=== PATIENT | female | born 1995 | race Caucasian/White ===

== ENCOUNTER 2025-06-20 13:12 | Outpatient (AMB) | payer OTHER, SELFPAY ==
--- OUTSIDE RECORDS SUMMARY | 2024-05-09 10:40 | XMS_ITS ---
Author Organization [employer] Address [address] [facility] [address] [place] [address] Care Team Providers Care Lumber Grader Name Role Phone DARNELL GIORDANO, RIAZ Primary Care Provider ALENA Jean Unavailable [phone] REASON FOR VISIT DEPO Encounters Encounter Location Date Provider Diagnosis [facility] [address] [place] [address] 05/09/2024 ALENA JEROME Plan Of Treatment Next Appt Details Provider Name:Tootie calhoun, 07/03/2025 08:10:00 AM, [address] [facility], [facility] [address], [place], [address], Progress Notes * MIAH MURPHYDOB: (30 yo F)Acc No.[id number]:05/09/2024 PROGRESS NOTES Patient: Clara MIAH GHOTRA Provider: Sarah JEROME MD :1995 A ge:29 Y S ex:Female Date:05/09/2024 Address[address] [id number] Pcp:RIAZ PATRICK MD Subjective: * Chief Complaints: * 1 . DEPO. * Medical History: Objective: * Vitals: Assessment: Plan: * Treatment: * Images: Billing Information: * Visit Code: * Procedure Codes: * Electronic signature of ALENA JEROME MD on 06/20/2025 at 05:14 PM EST Sign off status: Pending * Provider: Sarah JEROME MD Date: 1 07/09/2023 Generated for Josefina gibson/Jaquelin/Holly on: 08/21/2024 05:14 PM EST
--- OUTSIDE RECORDS SUMMARY | 2024-07-29 09:50 | XMS_ITS ---
Author Organization [facility] Address [address] [facility] [address] [place] [address] Care Team Providers Care Resident Care Aid Name Role Phone DARNELL GIORDANO, RIAZ Primary Care Provider ALENA Jean Unavailable [phone] REASON FOR VISIT DEPO Encounters Encounter Location Date Provider Diagnosis [facility] [employer] [facility] [address] [place] [address] 07/29/2024 ALENA JEROME Plan Of Treatment Next Appt Details Provider Name:Tootie calhoun, 07/03/2025 08:10:00 AM, [address] [facility], [facility] [address], [place], [address], Progress Notes * MIAH MURPHYDOB: (30 yo F)Acc No.[id number]:07/29/2024 PROGRESS NOTES Patient: Clara MIAH GHOTRA Provider: Sarah JEROME MD :1995 A ge:29 Y S ex:Female Date:07/29/2024 Address:[address] [id number] Pcp:RIAZ PATRICK MD Subjective: * Chief Complaints: * 1 . DEPO. * Medical History: Objective: * Vitals: Assessment: Plan: * Treatment: * Images: Billing Information: * Visit Code: * Procedure Codes: * Electronic signature of ALENA JEROME MD on 06/20/2025 at 05:14 PM EST Sign off status: Pending * Provider: Sarah JEROME MD Date: 0 07/29/2024 Generated for Josefina gibson/Jaquelin/Holly on: 1 08/21/2024 05:14 PM EST
--- OUTSIDE RECORDS SUMMARY | 2024-10-21 09:00 | XMS_ITS ---
Author Organization [facility] [employer] Address [address] [facility] [address] [place] [address] Care Team Providers Care Cook Specialty Name Role Phone DARNELL GIORDANO, RIAZ Primary Care Provider ALENA Jean Unavailable [phone] REASON FOR VISIT DEPO Encounters Encounter Location Date Provider Diagnosis [facility] [employer] [address] [place] [address] 10/21/2024 ALENA JEROME Plan Of Treatment Next Appt Details Provider Name:Tootie calhoun, 07/03/2025 08:10:00 AM, [address] [facility], [facility] [address], [place], [address], Progress Notes * MIAH MURPHYDOB: (30 yo F)Acc No.[id number]:10/21/2024 PROGRESS NOTES Patient: Clara MIAH GHOTRA Provider: Sarah JEROME MD :1995 A ge:29 Y S ex:Female Date:10/21/2024 Address:[address] [id number] Pcp:RIAZ PATRICK MD Subjective: * Chief Complaints: * 1 . DEPO. * Medical History: Objective: * Vitals: Assessment: Plan: * Treatment: * Images: Billing Information: * Visit Code: * Procedure Codes: * Electronic signature of ALENA JEROME MD on 06/20/2025 at 05:13 PM EST Sign off status: Pending * Provider: Sarah JEROME MD Date: 0 10/21/2024 Generated for Josefina gibson/Jaquelin/Holly on: 1 08/21/2024 05:13 PM EST
--- OUTSIDE RECORDS SUMMARY | 2024-11-24 09:30 | XMS_ITS ---
Author Organization [facility] [facility] Address [address] [facility] [address] [place] [address] Care Team Providers Care Collections Curator Name Role Phone DARNELL GIORDANO, RIAZ Primary Care Provider ALENA Jean [phone] REASON FOR VISIT Annual SAP FICO ARCHITECT Physical Encounters Encounter Location Date Provider Diagnosis [facility] [address] [place] [address] 11/24/2024 ALENA JEROME Plan Of Treatment Next Appt Details Provider Name:Tootie calhoun, 07/03/2025 08:10:00 AM, [address] [place] [address], [facility] [address], [place], [address], Progress Notes * MIAH MURPHYDOB: (30 yo F)Acc No.[id number]:11/24/2024 PROGRESS NOTES Patient: Clara MIAH GHOTRA Provider: Sarah JEROME MD :1995 A ge:29 Y S ex:Female Date:11/24/2024 [id number] Pcp:RIAZ PATRICK MD Subjective: * Chief Complaints: * 1 . Annual SAP FICO ARCHITECT Physical. * Medical History: Objective: * Vitals: Assessment: Plan: * Treatment: * Images: Billing Information: * Visit Code: * Procedure Codes: * Electronic signature of ALENA JEROME MD on 06/20/2025 at 05:13 PM EST Sign off status: Pending * Provider: Sarah JEROME MD Date: 0 11/24/2024 Generated for Josefina gibson/Jaquelin/Holly on: 1 08/21/2024 05:13 PM EST
[2025-06-20 13:53] VITALS: BMI 26.6
--- NOTE | 2025-06-20 13:53 | A.PHYSOV ---
Vital Signs 06/20/25 13:53 Height 5 ft 4 in Weight 155 lb BMI 26.6 Intake Visit Reasons: NPV Oriana Ref- right leg numbness Intake Note: Patient is a 30 year old female here for initial visit. Patient has had right leg numbness with pain in her ankle and foot Auto Camp Attendant Required: No Allergies amoxicillin Allergy (Unknown, Verified 06/20/25 13:56) Unknown HPI Comments Details: History of Present Illness The patient is a 30-year-old female presenting for evaluation of right lower extremity numbness, tingling, and weakness. 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 She underwent surgery on her ankle in September 2019 to remove the tarsal coalition and ganglion cyst. Post-operatively, she began physical therapy and developed painful foot cramps where her toes would clench. She received multiple cortisone injections from her floor assembler, which provided temporary relief. In 2021, a cortisone injection in her schilling resulted in fat atrophy and subsequent hypersensitivity to touch in that area, which has persisted. In early 2023, the patient began to experience numbness from her knee down, which she describes as the sensation of a limb falling asleep, triggered by kneeling or squatting. The numbness resolved upon standing but would recur with squatting. Following physical therapy for a knee issue, the onset of numbness was delayed. More recently, after participating in a race this summer, the numbness and tingling have become more frequent, occurring spontaneously while walking. She now reports associated right foot weakness, with a sensation that she cannot pick her foot up, and right knee swelling after extensive activity. She endorses occasional right-sided low back tightness but denies any radiating sciatic pain. I reviewed the referring provider's no prior to consultation. Pain Description - Onset: Initial foot pain in 2018, followed by post-operative foot cramps, and more recent onset of numbness and tingling in 2023. - Location: Pain has been located in the right foot (cramps), buttock, schilling, and calf. - Sensation: Patient describes painful foot cramps, numbness from the knee down like a limb falling asleep, and hypersensitivity on the anterior schilling. - Exacerbating Factors: Symptoms are worsened by squatting, kneeling, prolonged sitting (such as driving), and cycling. - Relieving Factors: Numbness is relieved by standing after squatting. - Associated Symptoms: Reports weakness with a sensation of foot drop, and right knee swelling with increased activity. Results - MRI: Ankle MRI prior to 2019 surgery showed a tarsal coalition and ganglion cyst. - X-ray: A lumbar spine x-ray in May was reported as normal. [facility] Surgical History (Updated 06/20/25 @ 13:57 by Bria Zhang MA) History of ankle surgery Social History Alcohol intake: current Alcohol intake frequency: holidays/special occasions only Patient Tobacco Use Status: Never used Tobacco Review of Systems Narrative Review of Systems - Musculoskeletal: Reports intermittent right lower back tightness, painful cramps in the right foot, and swelling of the right knee with activity. - Neurological: Reports intermittent numbness and tingling in the right leg from the knee down, triggered by squatting and prolonged sitting. - Skin: Reports hypersensitivity on her right schilling. Physical Exam Exam Exam: Physical Exam - Back: Extension is non-painful. - Lower Extremities: No pain elicited with toe raises. - Neurologic: Right leg numbness is reproduced with squatting. - Straight leg raise is negative bilaterally. - Sensation to light touch is hypersensitive on the anterior aspect of the right schilling; sensation is otherwise symmetric. Vital Signs: BMI result Body Mass Index 26.6 Assessment & Plan Assessment & Plan (1) Neuropathy: Code(s): G62.9 - Polyneuropathy, unspecified Category: Medical (2) Lumbar radiculopathy: Code(s): M54.16 - Radiculopathy, lumbar region Category: Medical Plan Pain Management - Affect: The patient is concerned about her symptoms worsening and limiting her activities, particularly the weakness causing a risk of tripping. - Analgesia: The patient is not currently taking any medications for her symptoms. - Adverse Effects: A prior cortisone injection resulted in fat atrophy and persistent hypersensitivity. - Activities of Daily Living: The patient reports being able to live a normal life including running and lifting, but squatting is a significant limitation. - Aberrant Drug Related Behaviors: None discussed. Plan Patient was informed and verbally consented to the use of an ambient scribe for clinic note documentation during this visit. 1. Right Lower Extremity Paresthesia And Weakness The patient's numbness is thought to be unrelated to her knee and more likely due to a peripheral nerve issue or a back issue, such as a pinched nerve. The differential diagnosis includes peripheral neuropathy, possibly related to a prior cortisone injection, or lumbar radiculopathy from an occult disc issue. An EMG of the leg will be ordered to assess for peripheral nerve damage. Following the EMG, the patient will return for follow-up to review the results, at which time an MRI of her lumbar spine may be considered to evaluate for nerve compression, as her previous X-ray is insufficient to rule out a disc issue. 2. Activity Modification And Counseling The patient was counseled that certain activities appear to be exacerbating her symptoms. She has been advised to avoid squatting to prevent triggering numbness. She was also cautioned against exercises that involve heavy spinal loading, such as lifting with a barbell on her back, pending further evaluation of her spine. General activity and running are encouraged for overall health and well-being. Discussion Notes I discussed with the patient my clinical suspicion that her numbness is likely unrelated to her knee and is probably originating from either a peripheral nerve issue or a back problem, such as a pinched nerve that is position-dependent. I outlined a diagnostic plan, starting with an EMG of her right leg to assess for peripheral nerve damage, to be performed at [facility] with Dr. Yon Mills. I explained that while the EMG can diagnose conditions like neuropathy, treatment options such as medication are not ideal for her at this time given the intermittent nature of her symptoms. We discussed that her normal lumbar X-ray does not rule out a soft tissue problem like a bulging disc, and an MRI of her back may be necessary depending on the EMG results. The plan is to follow up after the EMG to review the findings and decide on further steps. I described the EMG procedure, noting that it involves some uncomfortable but brief electrical zaps to measure nerve function, and reassured her that it provides valuable information. I also set the expectation that it is possible for the workup to be negative, and in that event, we would manage her symptoms with activity modification and reassurance that there is no life-limiting condition. I advised her to avoid squatting and heavy spinal-loading exercises but encouraged her to continue other activities like running. Patient Instructions - You will be scheduled for an EMG, a nerve and muscle test, for your right leg at [facility] with Dr. Yon Mills. - Avoid squatting, as this activity seems to trigger your numbness. - Be very cautious with exercises that place a heavy bar or weight on your back. - You can continue with your general activities, including running. - Schedule a follow-up appointment after your EMG test to discuss the results and determine the next steps. Orders: Orders NE nerve conduction velocity Today G62.9 - Polyneuropathy, unspecified NE electromyogram (EMG) Today G62.9 - Polyneuropathy, unspecified Coding Level of Care Code Tele New Pt Level 4 (65138) Diagnoses Neuropathy G62.9 Lumbar radiculopathy M54.16
--- OUTSIDE RECORDS SUMMARY | 2025-06-20 17:14 | XMS_ITS | Clinical Summary ---
Author Organization [facility] Address [address] [place] [address] Phone Care Team Providers Care Box Finisher Name Role Phone Cinthya Gonzales MD Primary Care Provider Unavailabl e Immunizations Immunization Administration Dates Next Due DTaP 02/14/2002, 8,1997, 997,1997 Hep B, ped/adol 1997,1997,1997 Hib (PRP-T) 1997, 8,1997, 997 IPV 11/14/2001 MMR 01/14/2002,01/26/1998 Meningococcal Conj (Menactra) MCV4P 03/17/2013,1 07/15/2007 OPV 01/26/1998,1997,1997 Tdap 05/15/2008 Varicella 05/15/2008,10/05/1998 Family History Relation Name Status Comments Father Alive healthy, health y Father's Sister healthy Maternal Grandfather Alive hyperte nsion diagnosed with Hypertension Maternal Grandmother Alive hyperte nsion diagnosed with Hypertension Mother Alive healthy Paternal Grandfather Alive allergi es Paternal Grandmother Alive healthy Social History Tobacco Use Types Packs/Day Years Used Date Smoking Tobacco: Never Assessed Comments Unknown Sex and Gender Information Value Date Recorded Sex Assigned at Not on file Legal Sex Female 6:10 PM EDT Gender Identity Not on file Sexual Orientation Not on file Last Filed Vital Signs Vital Sign Reading Time Taken Comments Blood Pressure 104/66 11/23/2017 12:00 AM EDT Pulse 96 11/01/2012 12:00 AM EDT Temperature 36.9 C (98.5 F) 11/23/2017 12:00 AM EDT Respiratory Rate - - Oxygen Saturation 100% 11/01/2012 12:00 AM EDT Inhaled Oxygen Concentration - - Weight 59.9 kg (132 lb) 11/23/2017 12:00 AM EDT Height 167 cm (5' 5.75 ) 11/23/2017 12:00 AM EDT Body Mass Index 21.47 11/23/2017 12:00 AM EDT Plan of Treatment Health Maintenance Due Date Last Done Comments DTaP,Tdap,and Td Vaccines (7 - Td or Tdap) 05/15/2018 05/15/2008, 02/14/2002, 05/04/1998, Additional history exists HPV Vaccines (1 - 3-dose SCDM series) 01/26/2024 Influenza Vaccines (#1) 2025 COVID-19 Vaccine ( - 2024- season) 2025 HIB Vaccines Aged Out 1997, 07/07, 1997, Additional history exists No longer eligible based on patient's age to complete this topic Hepatitis B Vaccines Completed 1995, 1997, 1997 IPV Vaccines Completed 11/14/2001, 01/04, 1997, Additional history exists MMR Vaccines Completed 01/14/2002, 01/26/1998 Varicella Vaccines Completed 05/15/2008, 10/05/1998 Meningococcal Vaccine Completed 03/17/2013, 008 Hepatitis A Vaccines Aged Out No long er eligible based on patient's age to complete this topic Men B Vaccine Aged Out No longer elig ible based on patient's age to complete this topic Pneumococcal Vaccine Aged Out No long er eligible based on patient's age to complete this topic Care Teams Box Finisher Relationship Specialty Start Date End Date Cinthya Gonzales MD PCP - General 12/22/19
--- OUTSIDE RECORDS SUMMARY | 2025-06-20 17:14 | XMS_ITS | Patient Health Record ---
Author Organization [facility] Address [address] [facility] [address] [place] [address] Care Team Providers Care Disability Aide Name Role Phone Jaz Mcallister Primary Care Provider U LONNIE Sanchez Unavailable [phone] Allergies Allergen (clinical drug ingredient) Drug/Non Drug Allergy documented on EMR Reaction Allergy Type Onset Date Status amoxicillin Amoxicillin Unknown Drug Allergy Act dulce Reason For Referral Reason Patient with chronic right foot pain.. with tibial neuritis like symptoms. Now having bilateral knee pain and swelling. ? entrapment of nerve in soleal sling vs knee pathology. 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) Diagnosis 2 Chronic pain syndrom e (G89.4) Referring Provider First Name Seble valderrama Referring Provider Last Name Ary Referred Provider Specialty Orthopedic S urgery Referral Priority Routine Medications Medication SIG (Take, Route, Frequency, Duration) Notes Start Date End Date Status Cetirizine HCl 10 MG 1 tablet Orally Onc e a day Not-Taking medroxyPROGESTERone Acetate 150 MG/ML 1 ml Intramuscular every 12 weeks Active ZyrTEC Allergy 10 MG 1 tablet Orally Onc e a day Active Problems Problem Type SNOMED Code ICD Code Onset Dates Problem Status W/U Status Risk Notes Problem Tarsal tunnel syndrome (29504136) Tarsal tunnel syndrome, right lower limb (G57.51) Active confirmed Problem Chronic pain syndrome (030229656) Chronic pain syndrome (G89.4) Active confirmed Problem Tarsal tunnel syndrome (76587735) Tarsal tunnel syndrome of right side (G57.51) Active confirmed Problem Plantar nerve lesion (913316944) 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) Active confirmed Problem Exertional compartment syndrome of right lower extremity (M79.A21) Active confirmed Encounters Encounter Location Date Provider Diagnosis [facility] [address] [address] 07/04/2024 LONNIE ECHOLS [facility] [address] [address] 07/07/2024 LONNIE DOEALLEY [facility] [address] [address] 07/07/2024 Laxmitejaswi Ary Plan Of Treatment Pending Test Test Name Order Date X ray : Foot, right 3v 03/19/2020 X ray : Foot, right 3v 04/17/2021 X ray : Foot, right 3v 08/14/2021 X ray : Foot, right 3v 03/24/2023 Nail avulsion partial/complete INJECT NEUROMA 04/17/2021 PERIPHERAL NERVE BLOCK 05/04/2023 PERIPHERAL NERVE BLOCK 06/04/2023 Destruct benign skin lesion -14 020 Insurance Providers Payer Name Payer Address Payer Phone Subscriber Number Group Number Insured Name Patient Relationship to Insured Coverage Start Date Coverage End Date [facility] [address] [facility] [address] [place] [address] [id number] Radha Tinsley Self - patient is the insured Medications Administered Medication Instructions Date of Administration Dosage Notes Dexamethasone 04/17/2021 2 mg Kenalog 04/17/2021 20 mg Medical (General) History Medical History History ICD Code Ganglion, right ankle and foot M67.471 Anxiety disorder, unspecified F41.9 Unspecified asthma, uncomplicated J45.90 9 Other seasonal allergic rhinitis J30.2 COVID-19 infection May 2021 COVID Vaccine - Pfizer x2 Surgical History Surgery Date(Month/Year) resection of fibrous CN coal ition and excision of ganglion cyst, right foot 08/2019
--- OUTSIDE RECORDS SUMMARY | 2025-06-20 17:14 | XMS_ITS | Patient Health Record ---
Author Organization [facility] Address [address] [place] [address] Care Team Providers Care Resizer Operator Name Role Phone DARNELL GIORDANO, [facility] Primary Care Provider ALENA Jean [phone] Allergies Allergen (clinical drug ingredient) Drug/Non Drug Allergy documented on EMR Reaction Allergy Type Onset Date Status amoxicillin Amoxicillin hives Drug Allergy Act dulce Results Component Value Reference Range Notes PDF Report Reviewed date:01/02/2025 04:58:58 PM Interpretation: Performing Lab:[facility], [address] [place] [address], Phone - [phone], Director - [facility] Notes/Report: Clinical Information:VAG/CERV [id number] Dates / Results....08/29/21 No. of containers..01 ThinPrep Vial [id number] IGP rfx No Cultur e Under 30 Reviewed date:01/02/2025 09:09:34 AM Interpretation: Performing Lab:[facility], [address] [place] [address], Phone - [phone], Director - [facility] Notes/Report: Clinical Information:VAG/CERV [id number] Dates / Results....08/29/21 No. of containers..01 ThinPrep Vial Clinical Information:VAG/CERV [id number] Dates / Results....08/29/21 No. of containers..01 ThinPrep Vial DIAGNOSIS: EPITHELIAL CELL ABNORMALITY. ATYPICAL SQUAMOUS CELLS OF UNDETERMINED SIGNIFICANCE (ASC-US). Specimen adequacy: Satisfactory for evaluation. Endocervical and/or squamous metaplastic cells (endocervical component) are present. Clinician provided ICD10: Z01.419 Z11.51 Performed by: Solo Avendano , Occupational Health Nursing Director (ASCP) Electronically signed by: Kasia Panda MD, Pathologist . . Pathologist provided ICD10: R87.610 Note: The Pap smear is a screening test designed to aid in the detection of premalignant and malignant conditions of the uterine cervix. It is not a diagnostic procedure and should not be used as the sole means of detecting cervical cancer. Both false-positive and false-negative reports do occur. . Test Methodology: This liquid based ThinPrep(R) pap test was screened with the use of an image guided system. . See below for HPV testing results. . HPV Aptima Negative Negative This nucleic acid amplification test detects fourteen high-risk HPV types (16,18,31,33,35,39,45,51,52,5 6,58,59,66,68) without differentiation. Reason For Referral No Information Medications Medication SIG (Take, Route, Frequency, Duration) Notes Start Date End Date Status Escitalopram Oxalate 10 MG 1 tablet Oral ly Once a day Active ZyrTEC Allergy prn Activ e medroxyPROGESTERone Acetate 150 MG/ML 1 mL Intramuscular Every 3 months; Duration: 90 days 12/09/2020 Active Immunizations Vaccine Route Administration Date Status Comme nts GARDASIL 9 IM Intramuscular 11/09/2015 Administered GARDASIL 9 IM Intramuscular 01/09/2016 Administered GARDASIL 9 IM Intramuscular 05/16/2016 Administered Social History Tobacco Use: Social History Observation Description Date Details (start date - stop date) Never Smoker NA - NA Tobacco Use/Smoking Question Answer Notes Are you a nonsmoker Alcohol Screen (Audit-C) Question Answer Notes Did you have a drink contain ing alcohol in the past year? Yes How often did you have a dri nk containing alcohol in the past year? 2 to 4 times a month (2 points) How many drinks did you have on a typical day when you were drinking in the past year? 1 or 2 drinks (0 point) How often did you have 6 or more drinks on one occasion in the past year? Never (0 point) Points 2 Interpretation Negative Tobacco use other than smoking: Question Answer Notes Are you an other tobacco user? 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 Problem Uncomplicated asthma (disorder) (986653942) Unspecified asthma, uncomplicated (J45.909) Active confirmed Problem Oligomenorrhea (18745199) Oligomenorrhea, unspecified (N91.5) Active confirmed Problem Surveillance of depot contraception done (96464926540949) Encounter for surveillance of injectable contraceptive (Z30.42) Active confirmed Vital Signs Temperature 97.9 degrees Fahrenheit 04/10/2025 Blood pressure diastolic 78 mm Hg 04/10/2025 Height 65 in 04/10/2025 Blood pressure systolic 128 mm Hg 04/10/2025 Weight 153 lbs 04/10/2025 BMI 25.46 kg/m2 04/10/2025 Encounters Encounter Location Date Provider Diagnosis [address] [address] 07/28/2024 ALENA JEROME Encounter for surveillance of injectable contraceptive Z30.[address] [address] 10/24/2024 ALENAMk MONTGOMERYS Encounter for surveillance of injectable contraceptive Z30.[address] [address] 12/23/2024 ALENAMk JEROME Encounter for gynecological examination (general) (routine) without abnormal findings Z01.419 ; Encounter for surveillance of injectable contraceptive Z30.42 and Encounter for screening for human papillomavirus (HPV) Z11.[address] [address] 01/16/2025 ALENAMk MONTGOMERYS Encounter for surveillance of injectable contraceptive Z30.[address] [address] 04/10/2025 ALENA JEROME Encounter for surveillance of injectable contraceptive Z30.42 [facility] [address] [place] [address] 10/24/2024 ALENA JEROME Encounter for surveillance of injectable contraceptive Z30.42 [facility] [address] [place] [address] 01/03/2025 ALENA JEROME [facility] [address] [place] [address] 01/03/2025 ALENA JEROME Encounter for surveillance of injectable contraceptive Z30.42 [address] [place] [address] 01/02/2025 ALENA JEROME Assessments Encounter Date Diagnosis (ICD Code) Assessment Notes Treatment Notes Treatment Clinical Notes Section Notes 07/28/2024 Encounter for surveillance of injectable contraceptive (ICD-10 - Z30.42) Continue Depo. Next IM in 10-14w, ideally in w 10/24/2024 Encounter for surveillance of injectable contraceptive (ICD-10 - Z30.42) 10/24/2024 Encounter for surveillance of injectable contraceptive (ICD-10 - Z30.42) 12/23/2024 Encounter for gynecological examination (general) (routine) without abnormal findings (ICD-10 - Z01.419) Discussed cervical cancer screening with cytology every 3 years as per ASCCP guidelines. Advised continued annual pelvic exams. Patient encouraged to increase her level of exercise. SBE technique encouraged/tau ght. Safe sexual practices and STI prevention discussed. 12/23/2024 Encounter for surveillance of injectable contraceptive (ICD-10 - Z30.42) 01/03/2025 Encounter for surveillance of injectable contraceptive (ICD-10 - Z30.42) 01/16/2025 Encounter for surveillance of injectable contraceptive (ICD-10 - Z30.42) Continue Depo. Next IM in 10-14w, ideally in w 04/10/2025 Encounter for surveillance of injectable contraceptive (ICD-10 - Z30.42) Continue Depo. Next IM in 10-14w, ideally in w 12/23/2024 Encounter for screening for human papillomavirus (HPV) (ICD-10 - Z11.51) Plan Of Treatment Pending Test Test Name Order Date Test, Urine 08/11/2016 Test, Urine 07/18/2019 Ultrasound : Pelvic 10/23/2015 Testosterone 10/23/2015 free testosterone 10/23/2015 ANTITHYROGLOBULIN AB 11/09/2015 THIN PREP,HPV IF ASCUS, CT/GC (21-29YR) 08/29/2021 THYROTROPIN RECEPTOR AB 11/09/2015 TSH 01/09/2016 TSH 08/11/2016 TSH WITH REFLEX TO FT4 11/09/2015 Next Appt Details Provider Name:Tootie Pastor unique, 07/03/2025 08:10:00 AM, [address], [address], [place], [address], Insurance Providers Payer Name Payer Address Payer Phone Subscriber Number Group Number Insured Name Patient Relationship to Insured Coverage Start Date Coverage End Date [facility] [address] [place] [address] [id number] MIAH MURPHY Self - patient is the insured Medications Administered Medication Instructions Date of Administration Dosage Notes DEPO PROVERA 05/20/2016 150 mg DEPO PROVERA 08/11/2016 150 mg DEPO PROVERA 11/04/2016 150 mg DEPO PROVERA 01/26/2017 150 mg next inj due 04/19/17 DEPO PROVERA 04/15/2017 150 mg DEPO PROVERA 07/07/2017 150 mg DEPO PROVERA 09/29/2017 150 mg DEPO PROVERA 12/21/2017 150 mg next inj due 03/14/18 DEPO PROVERA 03/15/2018 150 mg NEXT INJ DUE Jun. DEPO PROVERA 11/18/2018 150 mg DEPO PROVERA 02/09/2019 DEPO PROVERA 04/26/2019 150 mg DEPO PROVERA 07/18/2019 150 mL DEPO PROVERA 10/10/2019 150 mg DEPO PROVERA 01/02/2020 150 mg DEPO PROVERA 03/27/2020 150 mg DEPO PROVERA 06/25/2020 150 mg DEPO PROVERA 09/17/2020 150 mg DEPO PROVERA 02/27/2021 150 mg DEPO PROVERA 05/23/2021 150 mg DEPO PROVERA 08/15/2021 150 mg DEPO PROVERA 11/07/2021 150 mg DEPO PROVERA 01/29/2022 150 mg DEPO PROVERA 04/21/2022 150 mg DEPO PROVERA 07/14/2022 150 mg DEPO PROVERA 10/07/2022 DEPO PROVERA 12/29/2022 150 mg DEPO PROVERA 03/24/2023 150 mg DEPO PROVERA 06/15/2023 150 mg DEPO PROVERA 09/08/2023 150 mg DEPO PROVERA 11/26/2023 150 mg DEPO PROVERA 02/16/2024 150 mg DEPO PROVERA 05/06/2024 150 mg DEPO PROVERA 07/28/2024 150 mL DEPO PROVERA 10/24/2024 150 mg DEPO PROVERA 01/16/2025 150 mL DEPO PROVERA 04/10/2025 150 mg Medroxyprogesterone 12/10/2020 150 mg Medroxyprogesterone 06/08/2018 150 mg Medroxyprogesterone 08/27/2018 150 mg Medical (General) History Medical History History ICD Code Obsessive-compulsive personality disorde r F60.5 Unspecified asthma, uncomplicated J45.90 9 Anxiety disorder, unspecified F41.9 Polycystic ovarian syndrome E28.2 Hypothyroidism, unspecified E03.9 tinea versicolor Oligomenorrhea, unspecified N91.5 COVID-19 U07.1 Surgical History Surgery Date(Month/Year) right ankle surgery - ganglion cyst & ta rsal coalition 08/31/2019 Cryo to plantar warts x 3 2021 Excision of lipoma from back 10/2024 Hospitalization History Reason Date(Month/Year) allergic reaction er visit 04/2022
--- OUTSIDE RECORDS SUMMARY | 2025-06-20 17:14 | XMS_ITS | Encounter Summary ---
Author Organization [facility] Address [address] [place] [phone] Phone Care Team Providers Care Adventure Education Teacher Name Role Phone Cinthya Gonzales MD Primary Care Provider Unavailabl e Encounter Details Date Type Department Care Team (Late st Contact Info) Description 11/22/2017 Conversion Encounter [facility] [address] [place] [address] Social History Tobacco Use Types Packs/Day Years Used Date Smoking Tobacco: Never Assessed Comments Unknown Sex and Gender Information Value Date Recorded Sex Assigned at Not on file Legal Sex Female 6:10 PM EDT Gender Identity Not on file Sexual Orientation Not on file documented as of this encounter Plan of Treatment Not on file documented as of this encounter Visit Diagnoses Not on filedocumented in this encounter Care Teams Adventure Education Teacher Relationship Specialty Start Date End Date Cinthya Gonzales MD PCP - General 12/22/19 documented as of this encounter
--- OUTSIDE RECORDS SUMMARY | 2025-06-20 17:14 | XMS_ITS | Encounter Summary ---
Author Organization [facility] Address [address] [place] [phone] Phone Care Team Providers Care Shirt Sewer Name Role Phone Cinthya Gonzales MD Primary Care Provider Unavailabl e Encounter Details Date Type Department Care Team (Late st Contact Info) Description 07/11/2009 Documentation [facility] Family Medicine [facility] [address] Family Medicine, Physician [facility] [place] [address] Social History Tobacco Use Types Packs/Day Years [...] on filedocumented in this encounter Care Teams Shirt Sewer Relationship Specialty Start Date End Date Cinthya Gonzales MD PCP - General 12/22/19 documented as of this encounter
== END 2025-06-20 16:51 | disposition home or self-care (01) ==
LOC: HO.HPHYS 13:13
PROVIDERS: PCP Family Medicine; Visit Provider Physician Assistant
DX: G62.9 Polyneuropathy, unspecified (principal); M54.16 Radiculopathy, lumbar region
CPT/HCPCS: 99204